=== PATIENT | male | born 1985 | race Caucasian/White ===

== ENCOUNTER 2022-01-08 13:23 | Emergency (ER) | payer OTHER ==
[2022-01-08] MEDS ORDERED: Lidocaine 1% 10 ML MDV INJECT ONE ×2 (15:26→15:51)
== END 2022-01-08 17:05 | disposition home or self-care (01) ==
LOC: JD.ED 13:23
DX: S02.2XXA Fracture of nasal bones, initial encounter for closed fracture (principal); S01.111A Laceration without foreign body of right eyelid and periocular area, initial encounter; Z72.0 Tobacco use; Y04.0XXA Assault by unarmed brawl or fight, initial encounter
CPT/HCPCS: 12013; 70450; 70450-26; 70486; 70486-26; 99283-25